=== PATIENT | female | born 1990 | race Asian ===

== ENCOUNTER → 2024-11-14 15:29 | Outpatient (REF) | payer OTHER, SELFPAY | LOC: RAD 15:29 | PROVIDERS: ATTENDING PHYSICIAN Internal Medicine Rheumatology; FAMILY PHYSICIAN Internal Medicine | DX: M46.1 Sacroiliitis, not elsewhere classified (principal); M54.9 Dorsalgia, unspecified; M45.9 Ankylosing spondylitis of unspecified sites in spine | CPT/HCPCS: 72072; 72110; 72170 ==